=== PATIENT | female | born 1995 | race Two or more races ===

== ENCOUNTER 2017-10-02 19:38 | Emergency (ER) ==
[2017-10-02 20:06] VITALS: BP 121/74
== END 2017-10-02 21:07 | disposition left against medical advice (07) ==
LOC: ER 19:38
DX: Z53.21 Procedure and treatment not carried out due to patient leaving prior to being seen by health care provider (principal); M79.646 Pain in unspecified finger(s)

== ENCOUNTER 2017-10-02 21:29 | Emergency (ER) | payer BC ==
[2017-10-02 21:34] VITALS: BP 130/76
--- NOTE | 2017-10-02 23:27 | ER Document Report ---
HPI - HPI Pain Level: 5 Notes: Pt is a 22yo female who presents to the ED c/o paronychia to the rt 5th digit x1 week. Pt states that she was seen 2 days ago by her PCM and placed on keflex and given mupirocin cream. Pt states that her symptoms have been ongoing since then and getting a little "worse." She has not noticed any purulent discharge or red streaks. Pt states that the pain is starting to affect the pad of her finger as well. Patient denies any other significant past medical history or drug allergies. Denies any headache, fever, neck pain, URI, sore throat, chest pain, palpitations, syncope, cough, shortness of breath , wheeze, dyspnea, abdominal pain, nausea/vomiting/diarrhea, urinary retention, dysuria, hematuria, numbness/tingling, muscle paralysis/weakness, or rash. - ROS Notes: REVIEW OF SYSTEMS: CONSTITUTIONAL : Denies fever, chills, or sweats. Denies recent illness. EENT: Denies eye, ear, throat, or mouth pain or symptoms. Denies nasal or sinus congestion or discharge. Denies throat, tongue, or mouth swelling or difficulty swallowing. CARDIOVASCULAR: Denies chest pain. Denies palpitations or racing or irregular heart beat. RESPIRATORY: Denies cough, cold, or chest congestion. Denies shortness of breath, difficulty breathing, or wheezing. GASTROINTESTINAL: Denies abdominal pain or distention. Denies nausea, vomiting , or diarrhea. GENITOURINARY: Denies difficulty urinating, painful urination, burning, frequency, blood in urine, or discharge. MUSCULOSKELETAL: see hpi SKIN: see hpi NEUROLOGICAL: Denies confusion or altered mental status. Denies passing out or loss of consciousness. Denies dizziness or lightheadedness. Denies headache. Denies problems with gait or speech. Denies sensory loss, numbness, or tingling. Denies seizures. ALL OTHER SYSTEMS REVIEWED AND NEGATIVE. Dictation was performed using [employer] voice recognition software - REPRODUCTIVE LMP: na Past Medical History - Social History Smoking Status: Never Smoker Family History: Reviewed & Not Pertinent Vertical Provider Document - CONSTITUTIONAL Agree With Documented VS: Yes Notes: PHYSICAL EXAMINATION: GENERAL: Well-appearing, well-nourished and in no acute distress. LUNGS: Breath sounds clear to auscultation bilaterally and equal. No wheezes rales or rhonchi. HEART: Regular rate and rhythm without murmurs, rubs, gallops. Musculoskeletal: Rt 5th digit: FROM to passive/active. Strength 5+/5. No tenderness to flexion of the MCP/PIP/DIP. N/V intact distal. Extremities: No cyanosis, clubbing, or edema b/l. Peripheral pulses 2+. Capillary refill less than 3 seconds. NEUROLOGICAL: Cranial nerves grossly intact. Normal speech, normal gait. Normal sensory, motor exams PSYCH: Normal mood, normal affect. SKIN: + abscess and erythema around the nail fold consistent with a paronychia. The pad of the finger is mildly tense with mild tenderness, but does still reshma. US was performed and did not show any fluid pocket to the pad of the finger. - INFECTION CONTROL TRAVEL OUTSIDE OF THE [place] IN LAST 30 DAYS: No - RESPIRATORY O2 Sat by Pulse Oximetry: 98 Course - Re-evaluation Re-evalutation: 10/02/17 00:15 Patient is an afebrile, well-hydrated, 22-year-old female who presents to the ED with a paronychia to the right fifth digit. Vitals are stable. PE is otherwise unremarkable for any neurovascular compromise, obvious tendon/ ligament rupture, obvious fracture/dislocation, flexor tenosynovitis, or felon. Low suspicion for any other sepsis, necrotizing fasciitis, or necrotic tissue. Ultrasound was unremarkable for any fluid collection in the pad of the finger. Patient is able to flex the finger without any pain or discomfort at the PIP, DIP, and MCP joints. I&D was unable to be performed as patient would not allow for the procedure to commence when we are ready after thoroughly cleaning the wound. I repeatedly offered the patient for 25 minutes that I would do it, but she kept pulling her hand away and stated that she "cannot do this." I did tell patient that if she does not have this performed then the infection can get worse and then she will need orthopedic surgery or hospitalization pending the extend of the infection. An infection can also always lead to sepsis and ultimately which she is aware of and understands. I told the patient that if she will not allow me to perform this procedure she will have to sign AMA. This was witnessed our PCT Nita and the patient's spouse who was also upset that she would not go through with the procedure. I will place the patient on Bactrim to add to her Keflex regimen. Recommend conservative measures for symptoms. Recheck with your PCM in 3-5 days. Return to the ED with any worsening/concerning symptoms otherwise as reviewed in discharge. Patient is in agreement. - Vital Signs Vital signs: Temp Pulse Resp BP Pulse Ox 98.6 F 84 18 130/76 H 98 10/02/17 21:32 10/02/17 21:32 10/02/17 21:32 10/02/17 21:32 10/02/17 21:32 Discharge - Discharge Clinical Impression: Paronychia Condition: Stable Disposition: AGAINST MEDICAL ADVICE Instructions: Epsom Salt Soaks ([facility]), Paronychia ([facility]) Additional Instructions: Keep the skin clean Wash with soap and water Tylenol/ibuprofen if needed Triple antibiotic ointment daily Take medications as directed Monitor for any worsening symptoms Recheck with your PCM in 3-5 days Consider consult with Orthopedics for ongoing/worsening symptoms Return to the ED with any worsening symptoms and/or development of fever, headache, chest pain, palpitations, syncope, shortness of breath, trouble breathing, abdominal pain, n/v/d, abscess, purulent discharge, red streaks, worsening swelling, or other worsening symptoms that are concerning to you. Prescriptions: Sulfamethoxazole/Trimethoprim [Bactrim Ds Tablet] 1 each PO BID #20 tablet Forms: Elevated Blood Pressure Referrals: EMORY GUILLEN DO [ACTIVE STAFF] - Follow up as needed
[2017-10-02] MEDS ORDERED: LIDOCAINE 1% INJ-PF (10 MG/ML) 30 ML SDV ONE (23:40)
== END 2017-10-03 00:19 | disposition left against medical advice (07) ==
LOC: ER 21:29
DX: L03.011 Cellulitis of right finger (principal); M79.646 Pain in unspecified finger(s)
CPT/HCPCS: 99283